=== PATIENT | female | born 1965 | race African-American/Black ===

== ENCOUNTER → 2020-02-27 | Emergency (ER) | payer OTHER ==
[~2020-02-27] VITALS: Ht 167.6 cm; Wt 63.5 kg
[~2020-02-27] MED LIST: NAPROSYN500 MG PO; NORCO 5-325 TA1 EACH PO; VALIUM5 MG PO
[2020-02-27 11:11] VITALS: BP 110/69
== END ==
LOC: ER 11:09
DX: M25.562 Pain in left knee (principal); M25.511 Pain in right shoulder; Z90.711 Acquired absence of uterus with remaining cervical stump; Z90.49 Acquired absence of other specified parts of digestive tract; Z79.899 Other long term (current) drug therapy; Z91.013 Allergy to seafood; W10.8XXA Fall (on) (from) other stairs and steps, initial encounter; Y93.89 Activity, other specified; Y92.89 Other specified places as the place of occurrence of the external cause; Y99.8 Other external cause status